=== PATIENT | female | born 2000 | race Asian ===

== ENCOUNTER 2019-09-18 21:19 | Emergency (ER) | payer OTHER ==
[~2019-09-18] VITALS: Ht 157.5 cm; Wt 46.4 kg
[2019-09-18 21:20] VITALS: BP 114/69
[2019-09-19] MEDS ORDERED: IBUPROFEN 600 MG TAB PO ONE (00:45)
== END 2019-09-19 01:10 | disposition home or self-care (01) ==
LOC: M ED 21:19
DX: S01.01XA Laceration without foreign body of scalp, initial encounter (principal); W01.198A Fall on same level from slipping, tripping and stumbling with subsequent striking against other object, initial encounter; Y92.098 Other place in other non-institutional residence as the place of occurrence of the external cause; Y93.K9 Activity, other involving animal care; Y99.8 Other external cause status